=== PATIENT | female | born 1980 | race Caucasian/White ===

== ENCOUNTER 2019-08-26 14:20 | Emergency (ER) | payer SELFPAY ==
[~2019-08-26] VITALS: Ht 170.2 cm; Wt 116.0 kg
[2019-08-26 14:21] VITALS: BP 0/0
== END 2019-08-26 15:52 | disposition left against medical advice (07) ==
LOC: ER 14:20
DX: F98.9 Unspecified behavioral and emotional disorders with onset usually occurring in childhood and adolescence (principal); Z53.21 Procedure and treatment not carried out due to patient leaving prior to being seen by health care provider